=== PATIENT | male | born 1965 | race Caucasian/White ===

== ENCOUNTER → 2019-11-12 | Outpatient (CLI) | payer SELFPAY ==
[2019-11-12 12:54] LABS: HCT 42.2 % (39.0-53.0); HGB 14.4 gm/dL (13.0-17.5); MCH 30.4 pg (25.0-35.0); MCHC 34.2 g/dL (31.0-37.0); MCV 88.8 fL (80.0-100.0); Mean Platelet Volume 7.7; Platelet Count 267 k/uL (150-450); RBC 4.75 m/uL (4.30-5.90); WBC 4.3 k/uL (3.8-10.6)
[2019-11-12 13:08] LABS: Albumin 4.5 g/dL (3.5-5.0); Calcium 9.9 mg/dL (8.4-10.2); Potassium 4.3 mmol/L (3.5-5.1); Total Bilirubin 0.6 mg/dL (0.2-1.3); Total Protein 7.1 g/dL (6.3-8.2)
--- NOTE | 2019-11-12 14:30 | CT ---
EXAMINATION TYPE: CT abdomen pelvis w con DATE OF EXAM: 11/12/2019 COMPARISON: NONE HISTORY: 54-year-old male Right sided abdominal pain, pain under umbilical TECHNIQUE: Contiguous axial scanning of the abdomen and pelvis following administration of 100 ml Iso reza 300 IV contrast. Delayed images through the kidneys and coronal/sagittal reconstructions perform ed. CT DLP: 1663.1 mGycm Automated exposure control for dose reduction was used. FINDINGS: LUNG BASES: No significant abnormality is appreciated. Tiny hiatal hernia. Some strandy atelectasis. LIVER/GB: Heterogeneous mixed low density and enhancement within the peripheral right liver lobe nicole uring up to 3.8 cm. More cystic appearing areas within measure up to 1.4 cm. Portal venous system is patent. No biliary ductal dilatation. Gallbladder within normal limits. PANCREAS: No significant abnormality is seen. SPLEEN: Contour defect on the lateral margin with some calcification, probably old posttraumatic naranjo ge ADRENALS: No significant abnormality is seen. KIDNEYS: 2.7 cm cyst medial right kidney. Symmetric uptake and excretion of contrast from both kidney s. BOWEL: Small fatty hernia. Normal appendix. Mild stool burden. Mild circumferential wall thickening distal sigmoid and rectum nonspecific. Mid to distal sigmoid diverticulosis. No convincing evidence f or acute diverticulitis. LYMPH NODES: No mesenteric or retroperitoneal lymphadenopathy. PELVIS: Bladder is urine distended. Pelvic phleboliths. Prostate gland measures 4.8 cm wide. No abnor mal fluid collection the pelvis or pelvic lymphadenopathy. BONES: Mild degenerative change at the hips. Facet arthropathy lower lumbar spine. IMPRESSION: 1. MID TO DISTAL SIGMOID DIVERTICULOSIS. NO CONVINCING EVIDENCE FOR ACUTE DIVERTICULITIS. 2. THERE IS SOME MILD CIRCUMFERENTIAL WALL THICKENING OF THE DISTAL SIGMOID AND RECTUM THAT COULD REP RESENT A NONSPECIFIC MILD COLITIS. CLINICALLY CORRELATE. 3. HETEROGENEOUS, AREA OF MIXED LOW DENSITY AND ENHANCEMENT IN THE PERIPHERAL RIGHT LIVER LOBE MEASUR ING UP TO 3.8 CM. THE APPEARANCE IS UNUSUAL. CORRELATE WITH INFLAMMATORY MARKERS AND WBC COUNT TO EXC LUDE THE POSSIBILITY OF EARLY DEVELOPING HEPATIC ABSCESS. FOLLOW-UP CAN BE CONSIDERED. 4. SMALL FATTY UMBILICAL HERNIA.
== END | disposition home or self-care (01) ==
LOC: RADCTMAIN 12:03
PROVIDERS: ATTEND Nurse Practitioner Adult Health
DX: K57.30 Diverticulosis of large intestine without perforation or abscess without bleeding (principal); K42.9 Umbilical hernia without obstruction or gangrene; R93.2 Abnormal findings on diagnostic imaging of liver and biliary tract; R10.9 Unspecified abdominal pain
CPT/HCPCS: 80053; 82150; 83690; 85027; 74177; 36415; Q9967